=== PATIENT | female | born 2000 | race American Indian/Alaskan Native ===

== ENCOUNTER 2025-05-09 15:35 | Outpatient (CLI) | payer OTHER, SELFPAY ==
[2025-05-09] VITALS (12 sets, daily range): BP systolic 126; BP diastolic 73; PULSE 95–110; RESP 18–97; TEMP 36.6; O2SAT 97–100; BMI 44.5
[2025-05-09] MEDS: BETAMET ACET/BETAMET NA PH (Celestone) 6 MG/ML VIAL 12 MG IM (16:37)
== END 2025-05-09 17:00 | disposition home or self-care (01) ==
LOC: S4S1 15:35 → S4SX 15:36
PROVIDERS: Referring Provider Obstetrics & Gynecology; Visit Provider Obstetrics & Gynecology
DX: Z34.83 Encounter for supervision of other normal pregnancy, third trimester (principal); Z36.9 Encounter for antenatal screening, unspecified; Z3A.32 32 weeks gestation of pregnancy
CPT/HCPCS: 96372; J0702

== ENCOUNTER 2025-05-10 16:31 | Outpatient (CLI) | payer OTHER, SELFPAY ==
[2025-05-10] VITALS (8 sets, daily range): BP systolic 104–118; BP diastolic 67; PULSE 101–114; RESP 17–97; TEMP 36.6; O2SAT 96–97; BMI 45.1
[2025-05-10] MEDS: BETAMET ACET/BETAMET NA PH (Celestone) 6 MG/ML VIAL 12 MG IM (17:05)
== END 2025-05-10 17:15 | disposition home or self-care (01) ==
LOC: S4S1 16:33 → S4SX 16:34
PROVIDERS: Referring Provider Obstetrics & Gynecology; Visit Provider Obstetrics & Gynecology
DX: Z34.83 Encounter for supervision of other normal pregnancy, third trimester (principal); Z3A.32 32 weeks gestation of pregnancy
CPT/HCPCS: 96372; J0702

== ENCOUNTER 2025-06-19 22:16 | Inpatient (IN) | payer OTHER, SELFPAY ==
--- NOTE | 2025-06-16 15:34 | ESHP_ITS ---
RE: MINGO BATISTA : 2000 DATE OF ADMISSION: 06/19/2025 HISTORY OF PRESENT ILLNESS: This is a 25-year-old 4, para 1-0-2-1 with due date of 07/02/2025 with intrauterine at 38 weeks 1 day on 06/19/2025, who presents for induction of labor for cholestasis of . The patient has been on ursodiol since cholestasis was diagnosed on 02/28/2025. Her bile acid levels have been in control with bile acid levels less than 5 for the past 3 months. Her liver enzymes were mildly elevated, but normalized on ursodiol. The patient reports that she does not have any itching when she is taking her ursodiol. Her care was also complicated by threatened labor. She had a positive fibronectin on 05/07/2025. At that time, she received betamethasone x2 doses. ALLERGIES: NO KNOWN DRUG ALLERGIES. MEDICATIONS: 1. multivitamin 1 p.o. daily. 2. Ursodiol 300 mg 1 p.o. b.i.d. 3. Albuterol inhaler 2 puffs q.4 hours p.r.n. shortness of breath, wheezing. PAST MEDICAL HISTORY: Cholestasis of , asthma, BMI 47. SOCIAL HISTORY: She is single. She denies any alcohol, drug use, or smoking. OB HISTORY: In 01/2022, 7-week spontaneous AB, no D and C. In 07/2023, 39- week, normal vaginal delivery, 6-pound 3 ounce female complicated by cholestasis. In 08/2024, 4-week spontaneous AB, no D and C. PAST SURGICAL HISTORY: Denies. REVIEW OF SYSTEMS: She denies any chest pain, palpitations, cough, fever, shortness of breath or lower extremity pain. She denies any headache, change in vision or right upper quadrant pain. PHYSICAL EXAMINATION: VITAL SIGNS: Blood pressure 123/70, heart rate 88, respirations 18, temperature 98.6. HEENT: Oropharynx and sclerae are clear. LUNGS: Clear to auscultation bilaterally. HEART: Regular rate and rhythm. ABDOMEN: Gravid, term size consistent with estimated weight 7 3/4 pounds. PELVIC: See RN notes. EXTREMITIES: Nontender. SKIN: No gross rashes or lesions. NEUROLOGIC: No focal deficits. ASSESSMENT AND PLAN: Intrauterine at 38 weeks and 1 days on 06/19/2025, cholestasis of , induction of labor. Anticipate spontaneous vaginal delivery. Informed consent was obtained. The patient was made aware of the risks, complications, alternatives, and benefits of operative vaginal delivery and delivery. Agrees with these modes of delivery if indicated. DT: 14:45:38 TT: 15:13:00 Ref: [id number] - TID: [id number] MTDD
--- NOTE | 2025-06-18 00:22 | PC.NURSE ---
2344:Pt. called regarding IOL, no answer. 2345:Pt. called regarding IOL, no answer, message left on voicemail. 2348:Pt's next of kin (Father) registered in [employer] called, no answer. 2348: Pt.s next of kin (Mother) registered in [employer] called, pt's mother reports she will have Jeanne call to Labor and Delivery. 2357: Pt. called to L&D unit, reports she will not come in for IOL and will come in tomorrow 06/18/25 to L&D after 0730, pt. was instructed to call tomorrow to L&D at and ask to speak to the charge operator for IOL/ bed availability, Labor and kick count precautions provided to the pt., pt. had no questions and agreed to POC.
[2025-06-19] VITALS (11 sets, daily range): BP systolic 115; BP diastolic 76; PULSE 81–98; RESP 16; TEMP 36.9; O2SAT 96–99; BMI 46.5
--- NOTE | 2025-06-19 20:23 | PC.NURSE ---
2020:pt. called x2 regarding IOL, intermittent with a static ring heard, call unable to go through after the third ring. 2022: Pt's. next of kin (Mother) located in [facility] called, pt's mother reports Jeanne is currently walking at this time, will relay the message to Jeanne to call back to L&D in approximately 30 minutes.
[2025-06-19 23:59] LABS: Basophils # (Auto) 0.0 Thou/mm3 (0.0-0.2); Basophils % (Auto) 0 % (0-2.5); Eosinophils # (Auto) 0.0 Thou/mm3 (0.0-0.5); Eosinophils % (Auto) 0 % (0-10); Hematocrit 35.5 % (36.0-46.0); Hemoglobin 12.2 g/dL (12.0-16.0); Immature Granulocytes Auto 0.04 Thou/mm3 (0.00-0.00); Lymphocytes # (Auto) 2.3 Thou/mm3 (1.0-4.8); Lymphocytes % (Auto) 21 % (10-50); Mean Corpuscular HGB Conc 34.4 g/dl (31.0-37.0); Mean Corpuscular Hemoglobin 31.4 pg (25.0-35.0); Mean Corpuscular Volume 91 fL (80-100); Monocytes # (Auto) 0.8 Thou/mm3 (0.0-0.8); Monocytes % (Auto) 7 % (0-12); Neutrophils # (Auto) 7.8 Thou/mm3 (1.8-7.7); Neutrophils % (Auto) 71 % (37-80); Nucleated Red Blood Cell # 0.00 Thou/mm3 (0.00-0.00); Nucleated Red Blood Cell % 0 /100 WBC (0); Platelet Count 349 Thou/mm3 (140-440); RDW Standard Deviation 42.8 fL (36.4-46.3); Red Blood Count 3.89 Miln/mm3 (4.00-5.20); White Blood Count 11.0 Thou/mm3 (3.6-11.0)
[2025-06-20] VITALS (45 sets, daily range): BP systolic 94–124; BP diastolic 60–88; PULSE 75–107; RESP 16–18; TEMP 36.6–36.8; O2SAT 90–99
[2025-06-20 00:47] LABS: Syphilis Nonreactive (Nonreactive)
[2025-06-20 00:49] LABS: Amphetamine/Metham Scrn,Ur OB Negative (Negative); Benzoylecgonine Screen, Ur OB Negative (Negative); Opiate Screen,Urine OB Negative (Negative); THC Screen,Urine OB Negative (Negative)
[2025-06-20] MEDS: Ampicillin Inj 2,000 MG in SODIUM CHLORIDE 0.9% (POP) 100 ML 200 MG IV (05:42)
[2025-06-20] MEDS: RINGERS LACTATED 1000 ML 1,000 ML 100 ML IV ×2 (06:34→16:30)
--- NOTE | 2025-06-20 07:10 | PD.LDPN ---
Documentation for date of: 06/20/25 OB Labor Progress Note Pelvic Exam Dilation (cm): 3 Effacement (%): 50 station: -3 Amniotic membrane status: Intact Contractions Monitor mode: External Contraction frequency: x1 Contraction pattern: Coupling Contraction intensity: Moderate Status status: Category l Assessment and Plan Comments: Cervical ripening on going Induction for Cholestasis Anticipate .
[2025-06-21] VITALS (97 sets, daily range): BP systolic 83–147; BP diastolic 50–97; PULSE 67–105; RESP 13–22; TEMP 36.5–36.9; O2SAT 92–100
[2025-06-21] MEDS: RINGERS LACTATED 1000 ML 1,000 ML 100 ML IV ×2 (00:07→10:37)
[2025-06-21] MEDS: OXYTOCIN in NS 30 units 30 UNIT/500 ML BAG IV (05:37)
--- NOTE | 2025-06-21 05:55 | ESPR_ITS ---
Documentation for date of: 06/21/25 OB Labor Progress Note Pelvic Exam Dilation (cm): 5 Effacement (%): 70 station: -3 Amniotic membrane status: Intact Contractions Monitor mode: External Contraction frequency: 4-14 Contraction pattern: Coupling Contraction intensity: Moderate Status status: Category l Assessment and Plan Comments: Station remains -3 and cervix is unchanged from yesterday. I explained to the patient my concerns about continuing to pursue induction and vaginal delivery would increase her risk for infection (chorioamnionitis and e ndometritis and sepsis) and that prolonged exposure to Pitocin could result in hemorrhage requiring blood transfusion that could untimately be life threatening and may result in hysterectomy. I dicussed how complications from these issues could result in prolonged hospitalization and complications from prolonged hospitalization such as VTE and pneumonia. I explained this in laymans terms so the patient verbalized she clearly understood.
--- NOTE | 2025-06-21 16:08 | PD.LDPN ---
Documentation for date of: 06/21/25 OB Labor Progress Note Pelvic Exam Dilation (cm): 6 Effacement (%): 70 station: -3 Amniotic membrane status: Intact Comments: NO descent of head. Contractions Monitor mode: External Contraction frequency: 1-5 Contraction pattern: Coupling Contraction intensity: Strong Status status: Category ll Assessment and Plan Comments: Arrest of Dilation Delivery Informed consent obtained. The patient was made aware of the risks, complications, alternatives and benefits of the proposed procedure and she agrees.
[2025-06-21] MEDS: ceFAZolin/D5W 2 GM IV 2 GM/100 ML BAG IV ×2 (16:27→22:01)
[2025-06-21] MEDS: FAMOTIDINE INJ 10 MG/ML VIAL 2 ML 20 MG IV (16:27)
--- NOTE | 2025-06-21 18:47 | ESOP_ITS ---
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 Induction of labor Cholestasis of Arrest of Dilation Pre-Op diagnosis: IUP 38w3d by best dates. Induction of labor Cholestasis of Arrest of Dilation Post-Op diagnosis: IUP 38w3d by best dates. Induction of labor Cholestasis of Arrest of Dilation Anesthesia type: Spinal Procedure description: After proper informed consent was obtained and the patient was made aware of the risks, complications, alternatives and benefits of the proposed procedure she was taken to the operating room where she underwent induction of spinal anesthesia. She was prepped and draped in the usual sterile fashion. A timeout was performed.? A Pfannenstiel skin incision was made with the scalpel and carried through to the underlying layer of fascia with the Bovie. The fascia was nicked in the midline incision and the incision was extended bilaterally with the Bovie. The inferior aspect of the fascial incision was grasped with Handy clamps elevated and the underlying rectus muscle dissected off with the Bovie. The superior aspect the fascial incision was grasped with Handy clamps elevated and the underlying rectus muscle dissected off with the Bovie. The rectus muscles were in the midline. The peritoneum was grasped between 2 Larry clamps and entered sharply with the Metzenbaum scissors. The peritoneum was extended superiorly and inferiorly with good visualization of the bladder. The vesicouterine peritoneum was incised transversely and the bladder flap created digitally. A Cornelius blade was inserted. A low transverse incision was made in the uterus with a scapel and the incision was extended digitally. The 's head delivered and the mouth and nose were suctioned with the bulb suction. The shoulder and body delivered atraumatically. The cord was clamped after 30 second delayed cord clamping and the cord was cut.? The female was handed off to the waiting Pediatric staff, cord blood was collected for lab testing. The placenta was removed complete and intact. The uterus was exteriorized and cleared of all clots and debris. The uterine incision was closed with #1-0 chromic catgut suture in a running interlocking fashion. A second layer of the same suture was used to imbricate the first layer and obtain excellent hemostasis. The vesicouterine peritoneum was closed with 2-0 chromic catgut suture in a running fashion. The firm uterus was returned to the abdomen. The gutters were cleared of all clots and debris. The peritoneum was closed with 0 chromic catgut suture in running fashion. The rectus muscle was closed with 0 chromic catgut suture. The fascia was closed with 0 Vicryl beginning at each angle and ending in the center in a running fashion. The subcutaneous tissue was irrigated with warmed normal saline solution and found to be hemostatic. The subcutaneous tissue was closed with 2-0 chromic catgut suture in a running fashion. The skin was closed with 4-0 Monocryl. A Dermabond Prineo dressing was applied and a sterile pressure dressing was applied.? She tolerated the procedure well. Counts were correct. I discussed with the patient the nature of her condition, intraoperative findings and expectation for recovery all? questions answered. Specimen: none Estimated blood loss (ml): 600 Findings: Live female 9 and 9. Clear amniotic fluid. Cephalic Right Occiput Transverse Weight: 8lbs 2 oz. Normal appearing uterus, ovaries and tubes. Complications: other (Uterine atony) Surgical staff Operation Date: 06/21/25 17:00 Case Staff Anesthesiologist: Oj Shipman RN First Assistant: Allison Montelongo RNseating captain: Amado Talavera Diagnosis Problem List Completed Was Problem List Reviewed/Reconciled?: Yes
[2025-06-21] MEDS: OXYTOCIN in NS 20 units 20 UNIT/1,000 ML BAG 125 UNIT IV (21:44)
[2025-06-21 23:55] LABS: Basophils # (Auto) 0.0 Thou/mm3 (0.0-0.2); Basophils % (Auto) 0 % (0-2.5); Eosinophils # (Auto) 0.0 Thou/mm3 (0.0-0.5); Eosinophils % (Auto) 0 % (0-10); Hematocrit 34.7 % (36.0-46.0); Hemoglobin 11.9 g/dL (12.0-16.0); Immature Granulocytes Auto 0.05 Thou/mm3 (0.00-0.00); Lymphocytes # (Auto) 0.7 Thou/mm3 (1.0-4.8); Lymphocytes % (Auto) 4 % (10-50); Mean Corpuscular HGB Conc 34.3 g/dl (31.0-37.0); Mean Corpuscular Hemoglobin 31.8 pg (25.0-35.0); Mean Corpuscular Volume 93 fL (80-100); Monocytes # (Auto) 0.2 Thou/mm3 (0.0-0.8); Monocytes % (Auto) 1 % (0-12); Neutrophils # (Auto) 16.7 Thou/mm3 (1.8-7.7); Neutrophils % (Auto) 94 % (37-80); Nucleated Red Blood Cell # 0.00 Thou/mm3 (0.00-0.00); Nucleated Red Blood Cell % 0 /100 WBC (0); Platelet Count 282 Thou/mm3 (140-440); RDW Standard Deviation 43.8 fL (36.4-46.3); Red Blood Count 3.74 Miln/mm3 (4.00-5.20); White Blood Count 17.7 Thou/mm3 (3.6-11.0)
[2025-06-22 00:30] VITALS: BP 126/69; PULSE 70; RESP 19; TEMP 36.9; O2SAT 97
--- NOTE | 2025-06-22 04:34 | ESPR_ITS ---
RE: MINGO BATISTA : 2000 DATE OF SERVICE: 06/22/2025 Postop day #1. The patient denies any problem or complaint. She has adequate urine output with Lerma catheter in place. She denies any nausea or vomiting. She is tolerating a regular diet. She denies any excessive vaginal bleeding. She denies any dizziness or lightheadedness. She denies any chest pain, palpitations, shortness of breath or lower extremity pain. OBJECTIVE: Vital Signs: Blood pressure 136/69, heart rate 70, respirations 19, temperature is 98.4, pulse oximetry is 97% on room air. Lungs: Clear to auscultation bilaterally. Heart: Regular rate and rhythm. Abdomen: Dressing dry and intact. Fundus is firm. Extremities: Nontender. Hemoglobin predelivery is 12.2, postdelivery is 11.9. ASSESSMENT: Postoperative day number 1, status post delivery. PLAN: Remove dressing. Discontinue IV. Encourage ambulation, support. Possible discharge home tomorrow. DT: 04:23:54 TT: 04:33:00 Ref: [id number] - TID: [id number]
[2025-06-22 04:35] VITALS: BP 95/68; PULSE 71; RESP 18; TEMP 36.8; O2SAT 98
[2025-06-22] MEDS: OXYTOCIN in NS 20 units 20 UNIT/1,000 ML BAG 125 UNIT IV (04:46)
[2025-06-22] MEDS: KETOROLAC INJ 30 MG/ML VIAL IVP (06:03)
[2025-06-22] MEDS: ceFAZolin/D5W 2 GM IV 2 GM/100 ML BAG IV ×2 (06:03→14:26)
[2025-06-22 07:45] VITALS: BP 101/69; PULSE 69; RESP 17; TEMP 36.7; O2SAT 98
[2025-06-22] MEDS: DOCUSATE SOD 100 MG CAPSULE PO (08:43)
[2025-06-22 11:20] VITALS: BP 92/53; PULSE 68; RESP 18; TEMP 36.8; O2SAT 97
--- NOTE | 2025-06-22 12:09 | PC.SS ---
SEISMIC SURVEY ASSISTANT conducted bedside contact with the patient to address nursing referral indicating patient utilized [facility] prior to .? Toxicology screening at admission negative.? SEISMIC SURVEY ASSISTANT introduced self and role.? SEISMIC SURVEY ASSISTANT discussed basis of referral.? Patient denied recreational use of THC.? Patient stated that has not engaged in use of THC.? 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 Patient denies history of THC use.? Infant, Denise; is the patient?s second child.? Infant was delivered via .? Patient plans of infant.? OB services provided by Allison Velarde.? Patient confirms consistency with OB appointments.? Patient is aligned with [facility].? Patient is not receiving SNAP or TANF.? Patient denies history of alcohol/drug abuse.? Patient denies CWS intervention.? Patient denies episodes of domestic violence.? Patient denies possessing a history of mental health, reports no current possession of depression or anxiety.? Patient has access to appropriate supplies and equipment; to include a car seat.? FOB, Pedro Frank will be involved in the rearing of the infant.? FOB will provide transportation upon discharge.? Patient describes possessing support system consisting of her mother and FOB.? SEISMIC SURVEY ASSISTANT provided the patient with community resources to include [facility] and Warm Line.? No further intervention required at this time, licensed social worker will be available to address any further concerns.? SEISMIC SURVEY ASSISTANT updated bedside nurse that patient denied history of THC use.? ?
[2025-06-22 15:45] VITALS: BP 94/63; PULSE 91; RESP 17; TEMP 36.4; O2SAT 98
[2025-06-22 19:40] VITALS: BP 109/72; PULSE 87; RESP 17; TEMP 36.6; O2SAT 97
[2025-06-22] MEDS: IBUPROFEN TAB 400 MG TABLET 800 MG PO (23:37)
[2025-06-23 03:50] VITALS: BP 114/76; PULSE 87; RESP 19; TEMP 36.7; O2SAT 97
[2025-06-23 08:00] VITALS: BP 115/75; PULSE 70; RESP 16; TEMP 36.7; O2SAT 98
--- NOTE | 2025-06-23 08:51 | ESPR_ITS ---
RE: MINGO BATISTA : 2000 DATE OF SERVICE: 06/23/2025 SUBJECTIVE: Postop day #2. The patient denies any problem or complaints. She is voiding. She is ambulating. She is tolerating diet. She is passing flatus. She denies any excessive vaginal bleeding. She denies any dizziness or lightheadedness. She denies any chest pain, palpitations, shortness of breath or lower extremity pain. OBJECTIVE: Vital Signs: Blood pressure 114/76, heart rate 87, respirations 19, temperature 98.0, pulse oximetry is 97% on room air. Lungs: Clear to auscultation bilaterally. Heart: Regular rate and rhythm. Abdomen: Incision clean and intact. Extremities: Nontender. ASSESSMENT AND PLAN: Postop day #2 status post delivery. PLAN: Discharge home. Discharge instructions given. Follow up in the office in 1 week. DT: 07:06:43 TT: 08:50:00 Ref: [id number] - TID: [id number]
[2025-06-23] MEDS: DOCUSATE SOD 100 MG CAPSULE PO (09:02)
[2025-06-23] MEDS: IBUPROFEN TAB 400 MG TABLET 800 MG PO (09:02)
[2025-06-23] MEDS: SIMETHICONE 80 MG CHEW PO (09:02)
--- NOTE | 2025-07-04 16:34 | OBDSUM_ITS ---
Data ([facility]) Data Hx Section: No : 4 Term: 1 : 0 Livin Abortions: Spontaneous & Theraputic: 0 Delivery Data ([facility]) Labor Data Initiation of labor: Augmentation Induction/Augmentation Agent: Cytotec-PO, Cervidil and Pitocin ROM date: 06/21/25 ROM time: 16:27 Amniotic membrane rupture type: Artificial Delivery Data delivery date: 06/21/25 delivery time: 16: Placenta delivery date: 06/21/25 Placenta delivery time: 16: Delivered by: Remi Garcia Delivery nurse: [email or web address] Pérez nurse: Hien Lugo [employer] Management Manager at delivery: Yes (Dr. Rajput) Support person(s) at delivery: mother of pt Delivery Method Delivery method: Low Transverse Presentation: Vertex Anesthesia Type Anesthesia Type: Spinal Anesthesia type: Spinal Placenta Placenta delivery description: Manual Removal Cord blood sent to lab: Yes cord blood collection: Cord Blood Type Umbilical Cord cord description: 3 Vessels Data ([facility]) Data order: 1 's gender: Female Identification band number: [id number] weight (gms): 8 lb 2.161 oz Weight (pounds): 8 lbs and 2.2 ozs length: 20.08 in 1 minute: 9 5 minutes: 9
== END 2025-06-23 13:00 | disposition home or self-care (01) | DRG 788 ==
LOC: S4SX 06-21 16:45 → S4NX 06-21 16:58
PROVIDERS: Admitting Provider Specialist; PCP Physician Assistant; Visit Provider Specialist
PROC: 10D00Z1 Extraction of Products of Conception, Low, Open Approach (ICD-10-PCS; CPT 59514; principal; 2025-06-21 16:45)
DX: O26.643 Intrahepatic cholestasis of pregnancy, third trimester (principal); K76.89 Other specified diseases of liver; Z37.0 Single live birth; Z3A.38 38 weeks gestation of pregnancy; O62.0 Primary inadequate contractions
CPT/HCPCS: 36415; 59409; 80307; 85025; 86780; 86850; 86900; 86901; 94762; A4217; A4649; J0290; J0689; J1100; J1885; J2210; J2274; J2405; J2590; J3010; J3490; J7120; S0191; A9270; J2270